=== PATIENT | female | born 1970 | race Caucasian/White ===

== ENCOUNTER 2016-07-31 15:35 | Emergency (ER) | payer SELFPAY ==
--- NOTE | 2016-07-31 16:40 | NUR ---
NO ANSWER IN ER LOBBY
--- NOTE | 2016-07-31 17:14 | NUR ---
NO ANSWER IN ER LOBBY
== END 2016-07-31 17:14 | disposition left against medical advice (07) ==
LOC: MED 15:35
DX: R10.9 Unspecified abdominal pain (principal); Z53.21 Procedure and treatment not carried out due to patient leaving prior to being seen by health care provider

== ENCOUNTER 2016-09-04 15:11 | Emergency (ER) | payer MEDICAID ==
[~2016-09-04] VITALS: Ht 160 cm; Wt 78.5 kg
[2016-09-04 15:31] VITALS: BP 99/69
--- NOTE | 2016-09-04 16:18 | NUR ---
Pt ambulated to bed 8.
--- NOTE | 2016-09-04 16:45 | NUR ---
PT BIB SELF C/O EPIGASTRIC PAIN PROGRESSIVELY GETTING WORSE X 1 MONTH WITH NAUSEA; PT DENIES V/D; PT DENIES ANY CP OR SOB; PT IS A&OX4, PERRLA, LS ARE CL BILATERALLY, RR ARE EVEN AND UNLABORED; ABD IS SOFT AND TENDER TO PALPATION TO TOUCH TO EPIGASTIC PAIN; PATIENT REPORTS INTERMITTENT NAUSEA; PT DENIES ANY URINARY COMPLAINTS; PROVIDED PT WITH WARM BLANKET, HOB ELEVATED; ALL NEEDS MET AT THIS TIME; AWAITING ER MD YOUNG; WILL CONTINUE TO MONITOR
[2016-09-04] MEDS ORDERED: oxyCODONE/APAP 5/325 MG 1 TAB TAB PO ONE (18:00)
[2016-09-04] MEDS ORDERED: ONDANSETRON 4 MG ODT PO ONE (18:20)
[2016-09-04 18:27] VITALS: BP 97/63
--- NOTE | 2016-09-04 18:28 | NUR ---
Patient discharged with v/s stable. Written and verbal after care instructions given and explained. Patient alert, oriented and verbalized understanding of instructions. Ambulatory with steady gait. All questions addressed prior to discharge. ID band removed. Patient advised to follow up with PMD. Rx of norco and colace given. Patient educated on indication of medication including possible reaction and side effects. Opportunity to ask questions provided and answered.
--- NOTE | 2016-09-04 18:37 | NUR ---
PATIENT WAS GIVEN ZOFRAN PO BEFORE DISCHARGE MEDICATION ADMINISTERED.
== END 2016-09-04 18:28 | disposition home or self-care (01) ==
LOC: MED 15:11
DX: K59.00 Constipation, unspecified (principal); K29.70 Gastritis, unspecified, without bleeding; F31.9 Bipolar disorder, unspecified; Z88.2 Allergy status to sulfonamides; Z90.89 Acquired absence of other organs; Z90.710 Acquired absence of both cervix and uterus; Z90.49 Acquired absence of other specified parts of digestive tract; F17.200 Nicotine dependence, unspecified, uncomplicated; Z71.6 Tobacco abuse counseling
CPT/HCPCS: 74000; 81002; 81025; 99283; S0119